=== PATIENT | male | born 1945 | race Caucasian/White ===

== ENCOUNTER 2017-05-12 08:58 | Outpatient (CLI) | payer OTHER, MEDICARE ==
[~2017-05-12 08:58] MED LIST: CANA100T PO; CLOP75TA2 PO; COR25 PO; DULA1.5P SQ; FURO-149 PO; GLIM2TAB58 PO; LANS30CA56 PO; LISI10TA5 PO; ROSU10TA PO; SAXA5TAB PO
== END 2017-05-12 17:12 | disposition home or self-care (01) ==
LOC: SCT 08:58
PROVIDERS: ATTEND Otolaryngology
DX: H66.90 Otitis media, unspecified, unspecified ear (principal); I70.90 Unspecified atherosclerosis

== ENCOUNTER 2017-09-24 10:48 | Outpatient (CLI) | payer OTHER, MEDICARE ==
[2017-09-24 11:18] LABS: BASOPHILS # (AUTO) 0.1 K/uL (0.0-0.2); BASOPHILS % (AUTO) 1.1 % (0.0-2.0); EOSINOPHILS # (AUTO) 0.2 K/uL (0.0-0.4); EOSINOPHILS % (AUTO) 2.8 % (0.0-4.0); HEMATOCRIT 44.5 % (36-54); HEMOGLOBIN 14.5 g/dL (14.0-18.0); LYMPHOCYTES # (AUTO) 0.9 K/uL (1.0-5.5); LYMPHOCYTES % (AUTO) 10.4 % (20.5-51.5); MEAN CORPUSCULAR HEMOGLOBIN 30 pg (27-31); MEAN CORPUSCULAR HGB CONC 33 % (32-36); MEAN CORPUSCULAR VOLUME 93 fL (79.0-98.0); MONOCYTES # (AUTO) 0.8 K/uL (0.0-1.0); MONOCYTES % (AUTO) 9.2 % (1.7-9.3); NEUTROPHILS # (AUTO) 6.7 K/uL (1.8-7.7); NEUTROPHILS % (AUTO) 76.5 % (40.0-70.0); PLATELET COUNT (AUTO) 286 K/uL (130-430); RED BLOOD CELL COUNT(AUTO) 4.78 MIL/uL (4.2-6.2); RED CELL DISTRIBUTION WIDTH 13.1 % (9.0-15.0); WHITE BLOOD COUNT (AUTO) 8.7 K/uL (4.8-10.8)
[2017-09-24 11:27] LABS: CALCIUM 8.7 mg/dL (8.4-11.0)
[2017-09-24 11:31] LABS: PHOSPHORUS 8.9 mg/dL (2.7-4.5)
[2017-09-24 12:21] LABS: CREATININE 7.88 mg/dL (0.55-1.30); POTASSIUM 5.6 mmol/L (3.5-5.1)
[2017-09-24] MEDS ORDERED: SAXA5TAB PO (17:02)
[2017-09-24] MEDS ORDERED: CILO100T PO (17:02)
[2017-09-24] MEDS ORDERED: OMEP40CA33 PO (17:02)
== END 2017-09-24 18:54 | disposition home or self-care (01) ==
LOC: SLB 10:48
PROVIDERS: ATTEND Internal Medicine
DX: E11.65 Type 2 diabetes mellitus with hyperglycemia (principal); E11.22 Type 2 diabetes mellitus with diabetic chronic kidney disease; N18.4 Chronic kidney disease, stage 4 (severe)
CPT/HCPCS: 36415; 80048; 83735-TC; 84100-TC; 85025

== ENCOUNTER 2017-09-24 14:08 | Inpatient (IN) | payer OTHER, MEDICARE ==
[~2017-09-24] VITALS: Ht 157.5 cm; Wt 73.9 kg
[2017-09-24 14:36] VITALS: BP_SYST 96
[2017-09-24] MEDS ORDERED: ONDANSETRON HCL 4 MG/2 ML VIAL IVP ONE (14:45)
[2017-09-24] MEDS ORDERED: NACL 0.9% 1,000 ML IV ONE ×2 (14:45→15:15)
[2017-09-24] MEDS ORDERED: ALBUTEROL SULFATE 0.083% 2.5 MG/3 ML VIAL.NEB INH ONE (15:15)
[2017-09-24] MEDS ORDERED: 0.45% NACL 1,000 ML IV ONE (15:15)
[2017-09-24] MEDS ORDERED: SODIUM POLYSTYRENE SULFONATE 15 GM/60 ML UDBTL PO ONE (15:15)
[2017-09-24] MEDS ORDERED: DEXTROSE 50% JECT 50 ML DISP.SYRIN IVP ONE (15:15)
[2017-09-24] MEDS ORDERED: INSULIN REGULAR, HUMAN 10 UNITS/0.1 ML INJ IVP ONE (15:15)
[2017-09-24 15:16] LABS: BASOPHILS # (AUTO) 0.1 K/uL (0.0-0.2); EOSINOPHILS # (AUTO) 0.2 K/uL (0.0-0.4); EOSINOPHILS % (AUTO) 2.8 % (0.0-4.0); HEMATOCRIT 41.2 % (36-54); HEMOGLOBIN 13.8 g/dL (14.0-18.0); LYMPHOCYTES # (AUTO) 0.9 K/uL (1.0-5.5); LYMPHOCYTES % (AUTO) 12.2 % (20.5-51.5); MEAN CORPUSCULAR HEMOGLOBIN 31 pg (27-31); MEAN CORPUSCULAR HGB CONC 34 % (32-36); MEAN CORPUSCULAR VOLUME 92 fL (79.0-98.0); MONOCYTES # (AUTO) 0.6 K/uL (0.0-1.0); MONOCYTES % (AUTO) 9.2 % (1.7-9.3); NEUTROPHILS # (AUTO) 5.2 K/uL (1.8-7.7); NEUTROPHILS % (AUTO) 74.8 % (40.0-70.0); PLATELET COUNT (AUTO) 276 K/uL (130-430); RED BLOOD CELL COUNT(AUTO) 4.48 MIL/uL (4.2-6.2); RED CELL DISTRIBUTION WIDTH 13.5 % (9.0-15.0)
[2017-09-24] MEDS: 0.45% NACL 1,000 ML IV SCH (15:30)
[2017-09-24 15:32] LABS: ANION GAP 16 (5-15); CALCIUM 8.6 mg/dL (8.4-11.0); CHLORIDE 99 mmol/L (98-107); GLUCOSE 234 mg/dL (70-99); POTASSIUM 5.1 mmol/L (3.5-5.1); SODIUM SERUM 133 mmol/L (136-145)
[2017-09-24 15:41] LABS: GFR AFRICAN AMERICAN 9 mL/min (>90); UREA NITROGEN, BLOOD 107 mg/dL (8-21)
[2017-09-24 15:47] LABS: ALANINE AMINOTRANSFERASE 22 U/L (12-78); ASPARTATE AMINOTRANSFERASE 15 U/L (10-37); TOTAL BILIRUBIN 0.5 mg/dL (0.0-1.0)
[2017-09-24 15:48] LABS: ALBUMIN 3.5 g/dL (3.4-4.8)
[2017-09-24 15:49] LABS: CREATININE 7.99 mg/dL (0.55-1.30)
[2017-09-24 16:28] VITALS: BP_SYST 94
[2017-09-24] MEDS ORDERED: CILO100T PO (17:02)
[2017-09-24] MEDS ORDERED: SAXA5TAB PO (17:02)
[2017-09-24] MEDS ORDERED: OMEP40CA33 PO (17:02)
[2017-09-24] MEDS ORDERED: MILK OF MAGNESIA 30 ML UDC PO PRN (18:15)
[2017-09-24 20:00] VITALS: BP_SYST 105; BP_SYST 135
[2017-09-24] MEDS: INSULIN REGULAR, HUMAN 100 UNITS/ML, 10 ML VIAL (novoLIN R) SUBCUT PRN (20:29)
[2017-09-24 22:01] LABS: BILIRUBIN,URINE NEGATIVE (NEGATIVE); BLOOD, URINE NEGATIVE (NEGATIVE); CLARITY/URINE CLEAR (CLEAR); COLOR,URINE YELLOW (YELLOW); GLUCOSE,URINE NEGATIVE (NEGATIVE); KETONES,URINE NEGATIVE (NEGATIVE); LEUKOCYTE ESTERASE ,URINE NEGATIVE (NEGATIVE); NITRITE, URINE NEGATIVE (NEGATIVE); PH,URINE 5.5 (5.0-8.0); PROTEIN URINE NEGATIVE (NEGATIVE); UROBILINOGEN,URINE 0.2 (0.2-1.0)
[2017-09-25 00:42] VITALS: BP_SYST 89
[2017-09-25] MEDS: 0.45% NACL 1,000 ML IV SCH ×3 (04:50→21:51)
[2017-09-25] MEDS: GLIMEPIRIDE 2 MG TABLET PO SCH ×2 (06:18→16:56)
[2017-09-25 06:56] LABS: BASOPHILS % (AUTO) 0.5 % (0.0-2.0); EOSINOPHILS # (AUTO) 0.2 K/uL (0.0-0.4); EOSINOPHILS % (AUTO) 2.5 % (0.0-4.0); HEMATOCRIT 38.5 % (36-54); HEMOGLOBIN 12.8 g/dL (14.0-18.0); LYMPHOCYTES # (AUTO) 1.1 K/uL (1.0-5.5); LYMPHOCYTES % (AUTO) 11.7 % (20.5-51.5); MEAN CORPUSCULAR HEMOGLOBIN 31 pg (27-31); MEAN CORPUSCULAR HGB CONC 33 % (32-36); MEAN CORPUSCULAR VOLUME 93 fL (79.0-98.0); MONOCYTES % (AUTO) 10.6 % (1.7-9.3); NEUTROPHILS # (AUTO) 7.2 K/uL (1.8-7.7); NEUTROPHILS % (AUTO) 74.7 % (40.0-70.0); PLATELET COUNT (AUTO) 266 K/uL (130-430); RED BLOOD CELL COUNT(AUTO) 4.14 MIL/uL (4.2-6.2); RED CELL DISTRIBUTION WIDTH 13.2 % (9.0-15.0); WHITE BLOOD COUNT (AUTO) 9.5 K/uL (4.8-10.8)
[2017-09-25 07:10] LABS: CALCIUM 7.6 mg/dL (8.4-11.0); CREATININE 7.32 mg/dL (0.55-1.30); POTASSIUM 4.1 mmol/L (3.5-5.1)
[2017-09-25 07:19] LABS: ALBUMIN 2.9 g/dL (3.4-4.8); TOTAL BILIRUBIN 0.4 mg/dL (0.0-1.0)
[2017-09-25 08:00] VITALS: BP_SYST 112
[2017-09-25] MEDS: FAMOTIDINE 20 MG TABLET PO SCH (08:46)
[2017-09-25] MEDS: CLOPIDOGREL BISULFATE 75 MG TABLET PO SCH (08:48)
[2017-09-25] MEDS: CARVEDILOL 25 MG TABLET (COREG) PO SCH (08:48)
[2017-09-25] MEDS ORDERED: OMEPRAZOLE 20 MG CAPSULE.DR (PriLOSEC) PO SCH (09:00)
[2017-09-25] MEDS: INSULIN REGULAR, HUMAN 100 UNITS/ML, 10 ML VIAL (novoLIN R) SUBCUT PRN (11:28)
[2017-09-25 12:44] VITALS: BP_SYST 110
[2017-09-25 16:42] VITALS: BP_SYST 101
[2017-09-25] MEDS ORDERED: ROSUVASTATIN CALCIUM 5 MG/TAB (CRESTOR) PO SCH (18:00)
[2017-09-25 20:10] VITALS: BP_SYST 119
[2017-09-25 23:39] VITALS: BP_SYST 126
[2017-09-26] MEDS: GLIMEPIRIDE 2 MG TABLET PO SCH ×2 (06:04→17:14)
[2017-09-26] MEDS: INSULIN REGULAR, HUMAN 100 UNITS/ML, 10 ML VIAL (novoLIN R) SUBCUT PRN ×3 (06:09→17:18)
[2017-09-26 06:22] LABS: BASOPHILS % (AUTO) 0.5 % (0.0-2.0); EOSINOPHILS # (AUTO) 0.3 K/uL (0.0-0.4); EOSINOPHILS % (AUTO) 3.3 % (0.0-4.0); HEMOGLOBIN 13.6 g/dL (14.0-18.0); MEAN CORPUSCULAR HEMOGLOBIN 31 pg (27-31); MEAN CORPUSCULAR HGB CONC 34 % (32-36); MEAN CORPUSCULAR VOLUME 92 fL (79.0-98.0); MONOCYTES # (AUTO) 0.9 K/uL (0.0-1.0); MONOCYTES % (AUTO) 11.6 % (1.7-9.3); NEUTROPHILS # (AUTO) 5.7 K/uL (1.8-7.7); NEUTROPHILS % (AUTO) 71.6 % (40.0-70.0); PLATELET COUNT (AUTO) 231 K/uL (130-430); RED BLOOD CELL COUNT(AUTO) 4.34 MIL/uL (4.2-6.2); RED CELL DISTRIBUTION WIDTH 13.4 % (9.0-15.0); WHITE BLOOD COUNT (AUTO) 7.9 K/uL (4.8-10.8)
[2017-09-26 06:44] LABS: ALBUMIN 2.8 g/dL (3.4-4.8); CALCIUM 8.4 mg/dL (8.4-11.0); CREATININE 6.2 mg/dL (0.55-1.30); POTASSIUM 3.4 mmol/L (3.5-5.1); TOTAL BILIRUBIN 0.6 mg/dL (0.0-1.0)
[2017-09-26] MEDS: FAMOTIDINE 20 MG TABLET PO SCH (08:11)
[2017-09-26] MEDS: CLOPIDOGREL BISULFATE 75 MG TABLET PO SCH (08:11)
[2017-09-26] MEDS: CARVEDILOL 25 MG TABLET (COREG) PO SCH (08:12)
[2017-09-26 09:51] VITALS: BP_SYST 125
[2017-09-26] MEDS: 0.45% NACL 1,000 ML IV SCH (10:37)
[2017-09-26 12:00] VITALS: BP_SYST 120
[2017-09-26 15:45] VITALS: BP_SYST 136
[2017-09-26 21:02] VITALS: BP_SYST 137
[2017-09-26] MEDS ORDERED: AMPICILLIN SODIUM/SULBACTAM NA 1.5 GM VIAL ONE (21:02)
[2017-09-26] MEDS: AMPICILLIN SODIUM/SULBACTAM NA 1.5 GM in NS 50 ML IV SCH (22:56)
[2017-09-26] MEDS ORDERED: D5W 1,000 ML IV PRN (23:01)
[2017-09-26] MEDS ORDERED: DEXTROSE 50% JECT 50 ML DISP.SYRIN ONE (23:06)
[2017-09-26] MEDS ORDERED: GLUCOSE 15 GM GEL (in 37.5 GM TUBE) PO PRN ×2 (23:15)
[2017-09-26] MEDS ORDERED: DEXTROSE 50% JECT 50 ML DISP.SYRIN IVP PRN ×2 (23:15)
[2017-09-26 23:32] VITALS: BP_SYST 126
[2017-09-27] MEDS: GLIMEPIRIDE 2 MG TABLET PO SCH (06:35)
[2017-09-27 07:18] LABS: BASOPHILS % (AUTO) 0.6 % (0.0-2.0); CALCIUM 8.8 mg/dL (8.4-11.0); CREATININE 4.87 mg/dL (0.55-1.30); EOSINOPHILS # (AUTO) 0.3 K/uL (0.0-0.4); EOSINOPHILS % (AUTO) 4.1 % (0.0-4.0); HEMATOCRIT 42.8 % (36-54); HEMOGLOBIN 14.2 g/dL (14.0-18.0); LYMPHOCYTES # (AUTO) 0.9 K/uL (1.0-5.5); LYMPHOCYTES % (AUTO) 12.3 % (20.5-51.5); MEAN CORPUSCULAR HEMOGLOBIN 31 pg (27-31); MEAN CORPUSCULAR HGB CONC 33 % (32-36); MEAN CORPUSCULAR VOLUME 93 fL (79.0-98.0); MONOCYTES # (AUTO) 0.7 K/uL (0.0-1.0); MONOCYTES % (AUTO) 9.8 % (1.7-9.3); NEUTROPHILS # (AUTO) 5.2 K/uL (1.8-7.7); NEUTROPHILS % (AUTO) 73.2 % (40.0-70.0); PLATELET COUNT (AUTO) 252 K/uL (130-430); POTASSIUM 3.6 mmol/L (3.5-5.1); RED CELL DISTRIBUTION WIDTH 13.3 % (9.0-15.0); WHITE BLOOD COUNT (AUTO) 7.2 K/uL (4.8-10.8)
[2017-09-27 08:06] VITALS: BP_SYST 137
[2017-09-27] MEDS: FAMOTIDINE 20 MG TABLET PO SCH (08:37)
[2017-09-27] MEDS: CLOPIDOGREL BISULFATE 75 MG TABLET PO SCH (08:37)
[2017-09-27] MEDS: AMPICILLIN SODIUM/SULBACTAM NA 1.5 GM in NS 50 ML IV SCH (08:37)
[2017-09-27] MEDS: CARVEDILOL 25 MG TABLET (COREG) PO SCH (08:38)
[2017-09-27] MEDS ORDERED: 0.45% NACL 1,000 ML IV SCH (09:30)
[2017-09-27] MEDS: INSULIN REGULAR, HUMAN 100 UNITS/ML, 10 ML VIAL (novoLIN R) SUBCUT PRN (11:33)
[2017-09-27 12:07] VITALS: BP_SYST 120
[2017-09-27 13:42] VITALS: BP_SYST 120
== END 2017-09-27 14:25 | disposition home or self-care (01) | DRG 683 ==
LOC: SED 14:08 → STU 15:14
PROVIDERS: ADMIT Family Medicine; ATTEND Family Medicine
DX: N17.0 Acute kidney failure with tubular necrosis (principal); L03.211 Cellulitis of face; E11.22 Type 2 diabetes mellitus with diabetic chronic kidney disease; E11.51 Type 2 diabetes mellitus with diabetic peripheral angiopathy without gangrene; I12.9 Hypertensive chronic kidney disease with stage 1 through stage 4 chronic kidney disease, or unspecified chronic kidney disease; N18.3 Chronic kidney disease, stage 3 (moderate); D64.9 Anemia, unspecified; E78.00 Pure hypercholesterolemia, unspecified; E86.0 Dehydration; H60.12 Cellulitis of left external ear; H60.92 Unspecified otitis externa, left ear; M95.10 Cauliflower ear, unspecified ear; Z87.891 Personal history of nicotine dependence; M19.90 Unspecified osteoarthritis, unspecified site; H70.90 Unspecified mastoiditis, unspecified ear
CPT/HCPCS: 36415; 71045; 76770; 80048; 80053; 81003; 82962; 83880; 84484; 85025; 87070-TC; 87081; 93005; 94640; 96361; 96374; 96375; 99285; J0295; J1815; J2405; J7030

== ENCOUNTER 2017-12-03 09:03 | Outpatient (CLI) | payer OTHER, MEDICARE ==
[~2017-12-03 09:03] MED LIST changes: -CANA100T PO; +CILO100T PO; -FURO-149 PO; -LANS30CA56 PO; -LISI10TA5 PO; +OMEP40CA33 PO; -SAXA5TAB PO
== END 2017-12-03 19:44 | disposition home or self-care (01) ==
LOC: SMI 09:03
PROVIDERS: ATTEND Internal Medicine Infectious Disease
DX: H60.92 Unspecified otitis externa, left ear (principal); G31.9 Degenerative disease of nervous system, unspecified
CPT/HCPCS: 70551

== ENCOUNTER 2023-03-29 18:57 | Emergency (ER) | payer OTHER, MEDICARE ==
[~2023-03-29] VITALS: Ht 160 cm; Wt 65.8 kg
[~2023-03-29 18:57] MED LIST changes: -CILO100T PO; +CILO100T3 PO; +OMEP40CA20 PO; -OMEP40CA33 PO; -ROSU10TA PO; +ROSU10TA2 PO
[2023-03-29 18:59] VITALS: BP_SYST 119; PULSE 103; RESP 18; TEMP 98.3; O2SAT 98
[2023-03-29] MEDS ORDERED: ASPIRIN 81 MG TAB.CHEW PO ONE (19:00)
[2023-03-29 20:12] LABS: BASOPHILS # (AUTO) 0.1 K/uL (0.0-0.2); BASOPHILS % (AUTO) 0.8 % (0.0-2.0); EOSINOPHILS # (AUTO) 0.2 K/uL (0.0-0.4); EOSINOPHILS % (AUTO) 2.4 % (0.0-4.0); HEMATOCRIT 54.7 % (36-54); HEMOGLOBIN 18.3 g/dL (14.0-18.0); LYMPHOCYTES # (AUTO) 0.6 K/uL (1.0-5.5); LYMPHOCYTES % (AUTO) 9.2 % (20.5-51.5); MEAN CORPUSCULAR HEMOGLOBIN 34 pg (27-31); MEAN CORPUSCULAR HGB CONC 33 % (32-36); MEAN CORPUSCULAR VOLUME 102 fL (79.0-98.0); MONOCYTES # (AUTO) 0.7 K/uL (0.0-1.0); MONOCYTES % (AUTO) 10.3 % (1.7-9.3); NEUTROPHILS # (AUTO) 5.3 K/uL (1.8-7.7); NEUTROPHILS % (AUTO) 77.3 % (40.0-70.0); PLATELET COUNT (AUTO) 151 K/uL (130-430); RED BLOOD CELL COUNT(AUTO) 5.37 MIL/uL (4.2-6.2); RED CELL DISTRIBUTION WIDTH 14.6 % (9.0-15.0); WHITE BLOOD COUNT (AUTO) 6.9 K/uL (4.8-10.8)
[2023-03-29 20:30] LABS: ALANINE AMINOTRANSFERASE 28 U/L (12-78); ALBUMIN 3.7 g/dL (3.4-4.8); ANION GAP 8 (5-15); ASPARTATE AMINOTRANSFERASE 22 U/L (10-37); CARBON DIOXIDE 24 mmol/L (23-29); CHLORIDE 103 mmol/L (98-107); CREATININE 1.98 mg/dL (0.55-1.30); GLUCOSE 218 mg/dL (74-106); POTASSIUM 4.3 mmol/L (3.5-5.1); SODIUM SERUM 135 mmol/L (136-145); TOTAL BILIRUBIN 0.7 mg/dL (0.0-1.0); TOTAL PROTEIN, SERUM 7.6 g/dL (6.4-8.3); UREA NITROGEN, BLOOD 38 mg/dL (8-21)
[2023-03-29] MEDS ORDERED: NACL 0.9% 1,000 ML IV ONE (20:45)
[2023-03-30] MEDS ORDERED: LEVO750T64 PO (00:10)
[2023-03-30 00:35] VITALS: BP_SYST 133; PULSE 87; RESP 16; TEMP 96.8; O2SAT 97
== END 2023-03-30 00:35 | disposition home or self-care (01) ==
LOC: SED 18:57
DX: J18.9 Pneumonia, unspecified organism (principal); R00.2 Palpitations; E86.0 Dehydration; E11.65 Type 2 diabetes mellitus with hyperglycemia; R73.9 Hyperglycemia, unspecified; I10 Essential (primary) hypertension; Z79.899 Other long term (current) drug therapy
CPT/HCPCS: 99285; 96360; 71045; 80053; 82962; 83880; 85025; 84484; 36415; 93005; J7030